=== PATIENT | female | born 1945 | race Caucasian/White ===

== ENCOUNTER 2018-05-24 12:49 | Outpatient (CLI) | payer MEDICARE, OTHER ==
--- NOTE | 2018-05-24 17:45 | Diagnostic Imaging Report ---
MIREILLE JEFFRIES [facility] [id number] [facility] [address] [address] Report Submission Date: May 24, 2018 2:00:08 PM SIGNAL TOWER DIRECTOR Patient Study Name: EDMAR SILVEIRA Date: May 24, 2018 12:57:31 PM SIGNAL TOWER DIRECTOR Modality Type: DX Gender: F Description: PELVIS : 45 Institution: [facility] Physician: MIREILLE JEFFRIES Examination: Plain film right hip History: PT STATES R HIP PAIN X 4 WEEKS AFTER A FALL. PT STATES NO PREVIOUS SURGERIES. (Hx) Comparison exams: None provided Findings: 2 views of the right hip demonstrates osteopenia. Articular degenerative spurring. Narrowing of the joint space. No fracture no dislocation. No soft tissue abnormality. Impression: Advanced degenerative changes. No acute cortical abnormality. Electronically signed on May 24, 2018 2:00:08 PM SIGNAL TOWER DIRECTOR by: Ron HARDEN
== END 2018-05-24 12:50 ==
LOC: RAD 12:49
PROVIDERS: ATTEND Nurse Practitioner Family
DX: M25.551 Pain in right hip (principal)
CPT/HCPCS: 73502